=== PATIENT | female | born 2000 | race Caucasian/White ===

== ENCOUNTER 2024-11-03 08:42 | Outpatient (AMB) | payer OTHER, SELFPAY ==
--- NOTE | 2024-11-03 09:21 | MHC.OFFWIV ---
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 Patient Tobacco Use Status: Never used Tobacco Allergies No Known Allergies Allergy (Verified 11/03/24 09:21) Do you need a note to return to daycare/school/sports/work: No HPI HPI Comments History of Present Illness Details History of Present Illness The patient is a 23-year-old female presenting with an ankle sprain. 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 She reports rolling her left ankle inwards and hearing a pop. She has a significant history of repeated ankle sprains, allowing her to recognize it as such. Currently, the patient experiences pain mostly on the lateral side of the left ankle and has difficulty bearing weight on the back of the foot, though she can apply pressure to her toes with some discomfort. Though she has full toe mobility, the patient notes a restriction in foot flexion and pointing due to pain. There is no tenderness in the back of the ankle. Physical Exam General: Cooperative, healthy appearing, comfortable, no acute distress and well developed Orientation: Patient oriented x3 Limitations: Ambulating gingerly Head: Normal to inspection Ears: Hearing grossly normal bilaterally Nose: Normal External nose present Face and sinus: Normal facial exam Eyes: Appearance normal, both eyes and all related structures Neck: Normal visual inspection and Yes full ROM Respiratory: Normal respiratory effort and able to speak in complete sentences. Skin: No rashes or lesions noted Neuro: Patient oriented x3 Extremities: TTP posterior medial malleolus extending down to the heel, slight edema in this area. No TTP posterior lateral malleolus or midfoot or base of 5th metatarsal. no TTP along all toes, all toes have full ROM and NVI. no defects along Achilles PFSH Social History Patient Tobacco Use Status: Never used Tobacco Review of Systems Const All systems reviewed & are unremarkable except as noted in HPI and below Physical Exam Vital Signs: Last Vital Signs Pulse 88 11/03/24 09:22 BP 122/80 11/03/24 09:22 Pulse Ox 98 11/03/24 09:22 Oxygen Delivery Method Room Air 11/03/24 09:22 Assessment & Plan Assessment & Plan (1) Acute left ankle pain: Code(s): M25.572 - Pain in left ankle and joints of left foot Plan: The patient will have an x-ray of the left ankle to assess for fractures following the outward roll of the ankle and subsequent audible pop. Until results are reviewed, I have advised the patient to limit weight-bearing, potentially using crutches which she has at home. Proper healing is crucial given her history of recurrent ankle sprains. She has been directed to the appropriate facility for imaging. No acute fracture or dislocation on the x-ray according to my read, pending final rads read. Likely a sprain, gave patient an Ortho boot as she is very active and works several jobs and it is going to be difficult for her to rest it or use crutches safely. Recommended she do [id number] exercises twice daily starting in 3-4 days. She should use ice and Aleve ATC for 3-4 days and then just use it as needed. If no improvement gradually in her symptoms over the next 3 weeks, she should follow up with her PCP. Patient was informed and verbally consented to the use of an ambient scribe for clinic note documentation during this visit. (2) Sprain of deltoid ligament of left ankle, initial encounter: Code(s): S93.422A - Sprain of deltoid ligament of left ankle, initial encounter Plan: as above Orders: Orders XR ankle LT min 3V 11/03/24 M25.572 - Pain in left ankle and joints of left foot Coding Level of Care Code New Pt Level 4 (53404) Diagnoses Acute left ankle pain M25.572 Sprain of deltoid ligament of left ankle, initial encounter S93.422A
[2024-11-03 09:22] VITALS: BP 122/80; PULSE 88; O2SAT 98
== END 2024-11-03 10:04 | disposition home or self-care (01) ==
PROVIDERS: Visit Provider Physician Assistant
DX: M25.572 Pain in left ankle and joints of left foot (principal); S93.422A Sprain of deltoid ligament of left ankle, initial encounter

== ENCOUNTER 2024-11-03 08:42 | Outpatient (REF) | payer OTHER, SELFPAY ==
--- NOTE | ~2024-11-03 | XR_ITS ---
EXAMINATION: XR ANKLE, LEFT CLINICAL INFORMATION: M25.572 - Pain in left ankle and joints of left foot COMPARISON: None available. TECHNIQUE: AP, lateral, and mortise views of the left ankle. FINDINGS: No fracture, dislocation, or suspicious bone lesion. Normal bone mineralization. Normal alignment. Joint spaces are preserved. No significant arthropathy. The mortise is preserved. The talar dome is normal. No significant ankle joint effusion. Soft tissues appear normal. XR/XR ankle LT min 3V IMPRESSION: Normal left ankle. Electronically signed by: Kaveh Travis MD 11/03/2024 10:53 AM EDT
== END 2024-11-03 08:43 | disposition home or self-care (01) ==
LOC: HO.HMGCX 08:42
PROVIDERS: Visit Provider Physician Assistant
DX: M25.572 Pain in left ankle and joints of left foot (principal)
CPT/HCPCS: 73610

== ENCOUNTER → 2024-11-03 09:36 | Outpatient (BNV) | payer OTHER, SELFPAY | PROVIDERS: Visit Provider Radiology Diagnostic Radiology | DX: M25.572 Pain in left ankle and joints of left foot (principal) | CPT/HCPCS: 73610 ==